=== PATIENT | male | born 1975 | race American Indian/Alaskan Native ===

== ENCOUNTER 2018-09-07 07:51 | Emergency (ER) | payer MEDICAID, OTHER ==
[2018-09-07 08:07] VITALS: BP 146/99; PULSE 97; RESP 20; TEMP 97.8; O2SAT 97
[2018-09-07] MEDS ORDERED: Tetanus/Diphtheria Toxoids 0.5 ml Syringe IM ONE ×2 (08:18→08:34)
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
== END 2018-09-07 08:36 | disposition home or self-care (01) ==
LOC: C.ER 07:51
DX: S02.5XXA Fracture of tooth (traumatic), initial encounter for closed fracture (principal); S09.90XA Unspecified injury of head, initial encounter; Y04.0XXA Assault by unarmed brawl or fight, initial encounter; Z23 Encounter for immunization